=== PATIENT | male | born 2000 ===

== ENCOUNTER → 2025-01-04 16:14 | Outpatient (CLI) | payer OTHER, SELFPAY ==
[2025-01-04 18:30] LABS: Urine Chlamydia NOT DETECTED; Urine N gonorrhoeae NOT DETECTED
== END ==
PROVIDERS: Visit Provider Nurse Practitioner Family
DX: L29.3 Anogenital pruritus, unspecified (principal); Z11.3 Encounter for screening for infections with a predominantly sexual mode of transmission
CPT/HCPCS: 87086; 87210; 87491; 87591